=== PATIENT | female | born 1925 | race Caucasian/White ===

== ENCOUNTER → 2016-08-30 | Outpatient (CLI) | payer OTHER, BC ==
[~2016-08-30] MED LIST: ALL100 PO; AMLO-114 PO; ASPI-435 PO; B-CO1CAP17 PO; CALC1CAP36 PO; CLC100 PO; CLXOPS3 OPL; COLC0.6T54 PO; FNTTP75 TD; FRS/40 PO; FURO80TA63 PO; IPRA1AER2 INH; LIDO1CRE16 TOP; MCRK/10 PO; METO2.5T PO; ONDA4TAB46 PO; OXYC-609 PO; PRED10TA PO; PRM625 PO; TPRSR/100 PO; TRIA0.1C20 TOP; TRMCR130WC TOP
--- NOTE | 2016-08-30 11:55 | DIAGNOSTIC IMAGING REPORT ---
ABDOMEN AND PELVIS CT WITHOUT CONTRAST CT DOSE: 281.91 mGy.cm HISTORY: Bowel habit change. R10.9 Abdominal painR19.7 Diarrhea TECHNIQUE: Multiaxial CT images of the abdomen and pelvis were performed without contrast. COMPARISON STUDY: None. FINDINGS: The lung bases are clear. The unenhanced liver, spleen, gallbladder, pancreas, kidneys, and adrenal glands are within normal limits. Several gallstones are present. No bowel wall thickening or obstruction. The pelvic organs are unremarkable. No suspicious lytic or blastic osseous lesions. Mild chronic sigmoid diverticulosis. No evidence for acute diverticulitis. IMPRESSION: No significant abnormality identified within the abdomen or pelvis. Mild chronic sigmoid diverticulosis. No evidence for acute diverticulitis. Several gallstones Electronically signed by: Ronak Flores M.D. 08/30/2016 11:54 AM Dictated Date/Time: 08/30/2016 11:52 AM
[2016-08-30 13:35] LABS: BASO % 0.2 %; BASO ABS # 0.02 K/uL (0-0.2); COMPLETE YES; EOS % 2.2 %; HEMATOCRIT 37.1 % (37-47); IG% 0.2 %; LYMPH % 23.6 %; LYMPH ABS # 1.95 K/uL (1.2-3.4); MEAN CELL VOLUME 98.9 fL (80-100); MEAN CORPUSCULAR HEMOGLOBIN 32.5 pg (25-34); MEAN CORPUSCULAR HGB CONC 32.9 g/dl (32-36); MONO % 12.4 %; NEUT % 61.4 %; PLATELET COUNT 203 K/uL (130-400); RED BLOOD COUNT 3.75 M/uL (4.2-5.4); WHITE BLOOD COUNT 8.25 K/uL (4.8-10.8)
[2016-08-30 13:55] LABS: ESTIMATED AVERAGE GLUCOSE 105 mg/dl; HA1C FLAG Normal (Normal)
[2016-08-30 14:31] LABS: ALB/GLOB RATIO 0.8 (0.9-2); ALKALINE PHOSPHATASE 126 U/L (45-117); ALT/SGPT 18 U/L (12-78); AST/SGOT 24 U/L (15-37); BLOOD UREA NITROGEN 61 mg/dl (7-18); CALCIUM 9.5 mg/dl (8.5-10.1); CARBON DIOXIDE 29 mmol/L (21-32); CHLORIDE 93 mmol/L (98-107); FERRITIN 731.9 ng/ml (8.0-388.0); GLUCOSE 85 mg/dl (70-99); MAGNESIUM 2.5 mg/dl (1.8-2.4); PHOSPHORUS 3.4 mg/dl (2.5-4.9); POTASSIUM 4.9 mmol/L (3.5-5.1); RHEUMATOID FACTOR < 10.0 U/mL (0-15); SODIUM 134 mmol/L (136-145); TOTAL IRON BINDING CAPACITY 264 mcg/dl (250-450); URIC ACID 2.4 mg/dl (2.6-7.2)
[2016-08-30 15:19] LABS: LYME DISEASE AB IGG NEG (NEG); LYME DISEASE AB IGM NEG (NEG)
== END | disposition home or self-care (01) ==
LOC: C.CTS 11:22
PROVIDERS: ATTEND Family Medicine
DX: R19.7 Diarrhea, unspecified (principal); R10.9 Unspecified abdominal pain; D64.9 Anemia, unspecified; N18.4 Chronic kidney disease, stage 4 (severe); I12.9 Hypertensive chronic kidney disease with stage 1 through stage 4 chronic kidney disease, or unspecified chronic kidney disease; R73.03 Prediabetes; E03.9 Hypothyroidism, unspecified; M79.643 Pain in unspecified hand; R73.09 Other abnormal glucose

== ENCOUNTER 2017-01-11 08:19 | Inpatient (IN) | payer OTHER, BC ==
[~2017-01-11] VITALS: Ht 165.1 cm; Wt 65.0 kg
[~2017-01-11 08:19] MED LIST changes: -B-CO1CAP17 PO; -COLC0.6T54 PO; -FRS/40 PO; -LIDO1CRE16 TOP; -PRED10TA PO; -TRMCR130WC TOP
--- NOTE | 2017-01-11 08:25 | EMERGENCY ROOM VISIT NOTE ---
History Report prepared by Sandy: Carmen Echevarria Under the Supervision of: Dr. Sesar Hedrick M.D. First contact with patient: 08:20 Stated Complaint: WIRST PAIN History of Present Illness The patient is a 89 year old female who presents to the Emergency Room with complaints of worsening right wrist pain beginning this morning. The patient notes the pain was a sudden onset. She is experiencing swelling and redness to the wrist. The patient has a fistula in her right upper arm. She does have full sensation in her fingers. The patient notes swelling to her lower extremities. She denies recent IVs, cuts to arm, or rashes. She has a history of gout. Source of History: patient Onset: this morning Position: wrist (right) Timing: worsening Associated Symptoms: No rash Note: The patient is experiencing swelling and redness to right wrist, swelling to lower extremities. Review of Systems See HPI for pertinent positives & negatives. A total of 10 systems reviewed and were otherwise negative. Past Medical & Surgical Medical Problems: (1) Acute renal failure superimposed on stage 4 chronic kidney disease (2) Anemia (3) Breast cancer (4) Chest pain (5) Congestive heart failure (CHF) (6) End-stage renal disease on hemodialysis (7) Eye pain (8) Gout, arthritis (9) Hypertension (10) Kidney disease (11) Nausea Family History Cancer Diabetes mellitus Gallbladder disease Heart disease Hypertension Kidney disease Kidney stones Social History Smoking Status: Former Smoker Alcohol Use: none Drug Use: none Marital Status: single, Housing Status: lives with family Occupation Status: retired Current/Historical Medications Scheduled Allopurinol (Allopurinol), 100 MG PO QAM Amlodipine (Norvasc), 10 MG PO QAM Aspirin (Aspirin 81), 81 MG PO QAM Estrogens, Conjugated (Premarin), 0.625 MG PO DAILY Fentanyl (Fentanyl), 75 MCG TD [id number] Furosemide (Lasix), 80 MG PO DAILY Ipratropium-Albuterol (Combivent Respimat), 1 PUFFS INH UD Lidocaine-Prilocaine (Lidocaine/Prilocaine), 1 APPLN TOP DIRECTED Metoprolol Succinate (Metoprolol Succinate ER), 100 MG PO QAM Triamcinolone Acet (Aristocort 0.1%), 1 APPLN TOP NEEDED Vitamin B Cmplx/Vitc/Folic Ac (Nephrocaps), 1 CAP PO DAILY Scheduled PRN Ondansetron Hcl (Zofran), 4 MG PO for Nausea Oxycodone HCl (Oxycodone HCl), 5 MG PO Q6 PRN for Pain Allergies Coded Allergies: Clindamycin (Verified Allergy, Intermediate, NAUSEA, itching, 03/06/16) Cephalexin (Verified Allergy, Unknown, pruritis per PCP note , 03/06/16) Penicillins (Verified Allergy, Unknown, HIVES, 03/06/16) Ciprofloxacin (Verified Adverse Reaction, Unknown, NAUSEA, 03/06/16) Codeine (Verified Adverse Reaction, Unknown, NAUSEA, 03/06/16) Physical Exam Vital Signs Date Time Temp Pulse Resp B/P (MAP) Pulse Ox O2 Delivery O2 Flow Rate FiO2 01/11/17 12:04 77 22 137/72 93 Room Air 01/11/17 10:52 74 22 138/72 94 Room Air 01/11/17 09:10 85 24 159/90 97 Room Air 01/11/17 09:10 97 Room Air 01/11/17 08:26 36.9 79 24 140/79 94 Room Air Physical Exam GENERAL: Patient is very uncomfortable appearing, crying and in moderate distress. HEENT: No acute trauma, normocephalic atraumatic, mucous membranes moist, no nasal congestion, no scleral icterus. NECK: No stridor, no adenopathy, no meningismus, trachea is midline. LUNGS: No dyspnea. Crackles in bilateral lung bases No wheeze, no rhonchi. HEART: Regular rate and rhythm. No murmurs, rubs, gallops appreciated. ABDOMEN: Soft, nontender, bowel sounds positive, no masses appreciated, no peritonitis. BACK: No midline tenderness, no CVA tenderness EXTREMITIES: Moderate swelling of distal right forearm with erythema and tenderness ot palpation. Moderate pain with range of motion of right wrist. Fistula in right upper arm. 2+ edema in lower bilateral legs. NEUROLOGIC: Alert and oriented, no acute motor or sensory deficits, no focal weakness, cranial nerves grossly intact. SKIN: No rash, no jaundice, no diaphoresis. Medical Decision & Procedures ER Provider Diagnostic Interpretation: X ray results are stated below per my interpretation and the radiologist's interpretation. RIGHT FOREARM 3 VIEWS HISTORY: swelling distal right forearm Right COMPARISON: None. FINDINGS: There is no fracture or dislocation. Soft tissues are unremarkable. Surgical clips at the antecubital fossa. Soft tissue swelling within the distal right forearm/wrist. 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 IMPRESSION: No fractures. Distal soft tissue swelling. Electronically signed by: Jayden Thompson M.D. 01/11/2017 8:51 AM Dictated Date/Time: 01/11/2017 8:49 AM CHEST ONE VIEW PORTABLE CLINICAL HISTORY: Shortness of breath, CHF dyspnea COMPARISON STUDY: 03/06/2016 FINDINGS: Small focus of pleural thickening left base laterally. Mild cardiomegaly. Slight prominence pulmonary vasculature. IMPRESSION: Pleural reactive changes left base. Mild cardia megaly. Electronically signed by: Ronak Flores M.D. 01/11/2017 8:50 AM Dictated Date/Time: 01/11/2017 8:49 AM Laboratory Results 01/11/17 08:40 Red Blood Count 3.53, Mean Corpuscular Volume 99.2, Mean Corpuscular Hemoglobin 32.9, Mean Corpuscular Hemoglobin Concent 33.1, Mean Platelet Volume 9.0, Neutrophils (%) (Auto) 80.0, Lymphocytes (%) (Auto) 9.8, Monocytes (%) (Auto) 7.8, Eosinophils (%) (Auto) 2.0, Basophils (%) (Auto) 0.2, Neutrophils # (Auto) 8.37, Lymphocytes # (Auto) 1.03, Monocytes # (Auto) 0.82, Eosinophils # (Auto) 0.21, Basophils # (Auto) 0.02 01/11/17 08:40 Test 01/11/17 08:40 White Blood Count 10.47 K/uL (4.8-10.8) Red Blood Count 3.53 M/uL (4.2-5.4) Hemoglobin 11.6 g/dL (12.0-16.0) Hematocrit 35.0 % (37-47) Mean Corpuscular Volume 99.2 fL (80-100) Mean Corpuscular Hemoglobin 32.9 pg (25-34) Mean Corpuscular Hemoglobin Concent 33.1 g/dl (32-36) Platelet Count 181 K/uL (130-400) Mean Platelet Volume 9.0 fL (7.4-10.4) Neutrophils (%) (Auto) 80.0 % Lymphocytes (%) (Auto) 9.8 % Monocytes (%) (Auto) 7.8 % Eosinophils (%) (Auto) 2.0 % Basophils (%) (Auto) 0.2 % Neutrophils # (Auto) 8.37 K/uL (1.4-6.5) Lymphocytes # (Auto) 1.03 K/uL (1.2-3.4) Monocytes # (Auto) 0.82 K/uL (0.11-0.59) Eosinophils # (Auto) 0.21 K/uL (0-0.5) Basophils # (Auto) 0.02 K/uL (0-0.2) RDW Standard Deviation 49.7 fL (36.4-46.3) RDW Coefficient of Variation 13.9 % (11.5-14.5) Immature Granulocyte % (Auto) 0.2 % Immature Granulocyte # (Auto) 0.02 K/uL (0.00-0.02) Erythrocyte Sedimentation Rate 69 mm/hr (0-21) Prothrombin Time 12.0 SECONDS (9.0-12.0) Prothromb Time International Ratio 1.1 (0.9-1.1) Activated Partial Thromboplast Time 28.2 SECONDS (21.0-31.0) Partial Thromboplastin Ratio 1.1 Anion Gap 9.0 mmol/L (3-11) Est Creatinine Clear Calc Drug Dose 7.8 ml/min Estimated GFR () 9.6 Estimated GFR (Non- 8.3 BUN/Creatinine Ratio 9.3 (10-20) Uric Acid 3.3 mg/dl (2.6-7.2) Calcium Level 9.3 mg/dl (8.5-10.1) C-Reactive Protein 1.69 mg/dl (0-0.29) Pro-B-Type Natriuretic Peptide 4990 pg/ml (0-1800) Laboratory results as reviewed by me. Medications Administered Medications (Trade) Dose Ordered Sig/Otis Route Start Time Stop Time Status Last Admin Dose Admin Fentanyl Citrate (Fentanyl Inj) 50 mcg NOW STAT IV 01/11/17 08:28 01/11/17 08:30 DC 01/11/17 08:45 50 MCG Fentanyl Citrate (Fentanyl Inj) 50 mcg NOW STAT IV 01/11/17 09:08 01/11/17 09:09 DC 01/11/17 09:14 50 MCG Hydromorphone HCl (Dilaudid Inj) 0.5 mg NOW STAT IV 01/11/17 09:38 01/11/17 09:39 DC 01/11/17 09:45 0.5 MG Colchicine (Colchicine Tab) 0.6 mg NOW ONCE PO 01/11/17 10:00 01/11/17 10:01 DC 01/11/17 10:13 0.6 MG Methylprednisolone Sodium Succinate (Solu-Medrol IV) 125 mg NOW STAT IV 01/11/17 09:50 01/11/17 09:53 DC 01/11/17 10:13 125 MG Hydromorphone HCl (Dilaudid Inj) 0.5 mg NOW STAT IV 01/11/17 10:48 01/11/17 10:50 DC 01/11/17 11:13 0.5 MG Hydromorphone HCl (Dilaudid Inj) 0.5 mg NOW STAT IV 01/11/17 11:24 01/11/17 11:25 DC 01/11/17 12:56 0.5 MG Oxycodone HCl (Roxicodone Immediate Rel Tab) 5 mg Q4 PRN PO 01/11/17 12:00 01/25/17 11:59 01/11/17 14:30 5 MG ED Course 0824: The patient was evaluated in room A2. A complete history and physical exam was performed. 0828: Fentanyl Inj 50 mcg IV. 0906: The patient is still experiencing pain. 0908: Fentanyl Inj 50 mcg IV. 0936: The patient is still in significant distress and crying. 0938: Dilaudid Inj 0.5 mg IV. 0948: I spoke with Dr. Jan JIM. He says that she meets no criteria for admission and he requests she is given other medications prior to him being involved in the case. He is requesting she be given a steroid, antibiotics and Colchicine. 0950: Solu-Medrol IV 125 mg IV. 0956: The patient is still crying and in significant distress. 1000: Colchicine Tab 0.6 mg PO. 1048: Dilaudid Inj 0.5 mg IV. 1124: Dilaudid Inj 0.5 mg IV. 1131: Discussed the patient's case with Dr. Jan JIM. The patient will be evaluated for further treatment and disposition. 1135: I reevaluated the patient. Discussed results and treatment plan with the patient. She verbalized understanding and agreement with the treatment plan. The patient will be evaluated for further management. Medical Decision Differential: DVT, CHF, Arterial Occlusion, Infectious, Joint Effusion, Trauma, Lymphedema, Idiopathic, Trauma, amongst other pathologies entertained. Medication Reconciliation: I attest that I have personally reviewed the patient 's current medication list. Blood Pressure Screening: Patient was found to have a slightly elevated blood pressure due to circumstances. The patient will be monitored by hospitalist. 89 yr old female with acute pain swelling right dorsal distal forearm. Localized and very TTP. Just mild erythema. Almost looks gout like if not in normal location. Doesn't appear cellulitic and labs would go against this as well. Seems unlikely DVT. Fistula on that arm working well. Labs look OK. She required 5 rounds IV narcotics while in ED with only minimal relief and still quite uncomfortable. She was given IV steroids and PO Colchicine with no improvement over 1 to 2 hours. With intractable pain can not sent to home. Consults Time Called: [phone] Consulting Physician: Dr. Jan JIM Returned Call: [phone] Jan JIM. He says that she meets no criteria for admission and he requests she is given other medications prior to him being involved in the case. He is requesting she be given a steroid, antibiotics and Colchicine. Impression Primary Impression: Intractable pain Additional Impression: Wrist swelling Scribe Attestation The scribe's documentation has been prepared under my direction and personally reviewed by me in its entirety. I confirm that the note above accurately reflects all work, treatment, procedures, and medical decision making performed by me. Departure Information Dispostion Being Evaluated By Hospitalist Referrals Sara Stroud DO (PCP) Problem Qualifiers
[2017-01-11] MEDS ORDERED: FENTANYL CITRATE INJ 50 MCG/1 ML 2 ML VIAL IV STA ×2 (08:28→09:08)
[2017-01-11 08:48] LABS: BASO % 0.2 %; BASO ABS # 0.02 K/uL (0-0.2); COMPLETE YES; IG% 0.2 %; LYMPH % 9.8 %; LYMPH ABS # 1.03 K/uL (1.2-3.4); MEAN CELL VOLUME 99.2 fL (80-100); MEAN CORPUSCULAR HEMOGLOBIN 32.9 pg (25-34); MEAN CORPUSCULAR HGB CONC 33.1 g/dl (32-36); MONO % 7.8 %; PLATELET COUNT 181 K/uL (130-400); RED BLOOD COUNT 3.53 M/uL (4.2-5.4); WHITE BLOOD COUNT 10.47 K/uL (4.8-10.8)
--- NOTE | 2017-01-11 08:51 | DIAGNOSTIC IMAGING REPORT ---
CHEST ONE VIEW PORTABLE CLINICAL HISTORY: Shortness of breath, CHF dyspnea COMPARISON STUDY: 03/06/2016 FINDINGS: Small focus of pleural thickening left base laterally. Mild cardiomegaly. Slight prominence pulmonary vasculature. IMPRESSION: Pleural reactive changes left base. Mild cardia megaly. Electronically signed by: Ronak Flores M.D. 01/11/2017 8:50 AM Dictated Date/Time: 01/11/2017 8:49 AM
--- NOTE | 2017-01-11 08:52 | DIAGNOSTIC IMAGING REPORT ---
RIGHT FOREARM 3 VIEWS HISTORY: swelling distal right forearm Right COMPARISON: None. FINDINGS: There is no fracture or dislocation. Soft tissues are unremarkable. Surgical clips at the antecubital fossa. Soft tissue swelling within the distal right forearm/wrist. 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 IMPRESSION: No fractures. Distal soft tissue swelling. Electronically signed by: Jayden Thompson M.D. 01/11/2017 8:51 AM Dictated Date/Time: 01/11/2017 8:49 AM
[2017-01-11 09:04] LABS: CALCIUM 9.3 mg/dl (8.5-10.1)
[2017-01-11] MEDS ORDERED: FRS/40 PO (09:12)
[2017-01-11] MEDS ORDERED: LIDO1CRE16 TOP (09:12)
[2017-01-11] MEDS ORDERED: TRMCR130WC TOP (09:12)
[2017-01-11] MEDS ORDERED: B-CO1CAP17 PO (09:12)
[2017-01-11 09:16] LABS: BUN/CREATININE RATIO 9.3 (10-20); C-REACTIVE PROTEIN 1.69 mg/dl (0-0.29); CREATININE 4.4 mg/dl (0.60-1.20); URIC ACID 3.3 mg/dl (2.6-7.2)
[2017-01-11] MEDS ORDERED: HYDROmorphone INJ 0.5 MG/0.5 ML SYR IV STA ×3 (09:38→11:24)
[2017-01-11] MEDS ORDERED: METHYLPREDNISOLONE 125 MG VIAL IV STA (09:50)
[2017-01-11] MEDS ORDERED: COLCHICINE 0.6 MG TAB PO ONE (10:00)
[2017-01-11] MEDS ORDERED: ONDANSETRON INJ 2 MG/ML 2 ML VIAL IV STA (11:23)
[2017-01-11 11:44] LABS: INR 1.1 (0.9-1.1); PARTIAL THROMBOPLASTIN RATIO 1.1
[2017-01-11] MEDS ORDERED: ACETAMINOPHEN 325 MG TAB PO PRN (12:00)
[2017-01-11] MEDS ORDERED: ONDANSETRON 4 MG TAB PO PRN (12:00)
[2017-01-11] MEDS ORDERED: IPRATROPIUM BROMIDE/ALBUTEROL respimat INH INH PRN (12:00)
[2017-01-11 12:15] VITALS: O2SAT 93; Ht 165.1 cm; Wt 65.0 kg
[2017-01-11 12:55] VITALS: O2SAT 93
[2017-01-11 13:11] VITALS: BP 144/70; PULSE 70; TEMP 37.1; O2SAT 98
[2017-01-11] MEDS: OXYCODONE HCL IR 5 MG TAB (IMMEDIATE RELEASE) PO PRN ×3 (14:30→22:33)
[2017-01-11 15:38] VITALS: BP 133/66; PULSE 77; TEMP 36.8; O2SAT 92
--- NOTE | 2017-01-11 15:42 | HISTORY & PHYSICAL EXAMINATION ---
DATE OF ADMISSION: 01/11/2017 CHIEF COMPLAINT: Significant pain in right upper extremity. HISTORY OF PRESENT ILLNESS: The patient is an 89-year-old female with end-stage renal disease, on dialysis for 1 year now. Her dialysis darklight inspector is Dr. You. The patient was in her regular state of health until she developed significant right wrist pain and swelling. The patient does not recall any trauma. Her right wrist had significant decrease in range of motion, tenderness, erythema and warmth. The patient does have significant history of gout and takes medications for that. Also, she does have a history of arthritis in her back and she is on fentanyl patch 75 mcg daily and on oxycodone p.r.n. The patient received multiple rounds of Dilaudid and fentanyl in the ER plus 1 colchicine and 1 shot of Solu-Medrol with no benefit. The patient will be admitted for pain control. REVIEW OF SYSTEMS: Denies any headache, double vision, blurry vision. Denies any chest pain or palpitation. Denies any cough, wheezing, shortness of breath. Denies any diarrhea, blood in the stool. Denies any burning sensation in the urine or blood. Denies any focal weakness, tingling, numbness. Rest of the review of systems is negative. PAST MEDICAL HISTORY: 1. End-stage renal disease, on dialysis. 2. Anemia of chronic disease. 3. History of breast cancer. 4. History of congestive heart failure, unspecified type. 5. Hypertension. 6. History of gout. FAMILY HISTORY: Positive for diabetes, cancer, heart disease and hypertension. SOCIAL HISTORY: Former smoker, does not drink alcohol. Single, . HOME MEDICATIONS: 1. Allopurinol. 2. Amlodipine. 3. Aspirin. 4. Estrogen. 5. Fentanyl. 6. Lasix 80 mg daily. 7. Combivent. 8. Lidocaine cream. 9. Metoprolol succinate. 10. Triamcinolone cream. 11. Vitamin B12 supplement. 13. Vitamin B complex. 14. Also, patient takes oxycodone p.r.n. 15. Zofran. ALLERGIES: CLINDAMYCIN, KEFLEX, PENICILLIN, CIPRO AND CODEINE, yet the patient tolerated oxycodone and Dilaudid. PHYSICAL EXAMINATION: VITAL SIGNS: Temperature is 36.9, heart rate 74, respirations 22, blood pressure 138/72, pulse ox 94% on room air. GENERAL: Average built, not in acute distress. HEENT: No jaundice. No pallor with mucous membranes. NECK: Supple. HEART: S1, S2 normal. No gallop, rub or murmur. LUNGS: Clear to auscultation bilaterally. Normal chest wall expansion. ABDOMEN: Soft, nontender, nondistended. NEUROLOGIC: Awake, alert, oriented to time, place, and person. Moves all extremities. Sensation intact. Cranial nerves II through XII appear to be intact. SKIN: No rash. EXTREMITIES: Right wrist appears to be swollen, tender and erythematous with decreased range of motion. IMAGING: X-ray of right wrist showed no fracture, but soft tissue swelling. Chest x-ray showed small focus of pleural thickening left base laterally, mild cardiomegaly, slight prominent pulmonary vasculature. LABORATORY DATA: White blood cell count 10.4, hemoglobin 11.6, platelets 181. BUN is 41, creatinine 4.4. Sodium 137, potassium is 4. Uric acid is 3.3. C-reactive protein 1.69 and BNP is 4990. elevated sedimentation rate is 69. ASSESSMENT: 1. Severe pain, swelling and decreased range of motion in right wrist, most likely acute gout. 2. End-stage renal disease, on dialysis. 3. Chest x-ray incidental finding of pleural reactive changes in left base/pleural thickening. 4. Anemia of chronic disease most likely. 5. History of congestive heart failure, unspecified. 6. Hypertension. 7. Severe chronic gout. PLAN: 1. The patient already received 1 dose of colchicine, will hold off that. 2. We will start her on Solu-Medrol 60 q.6 hours. 3. Pain management, continue her fentanyl patch and add oxycodone p.r.n. 4. Follow up labs in a.m. 5. Consult darklight inspector for dialysis while inpatient. 6. Hold allopurinol for now due to the acute gout. 7. Continue home medications as appropriate. 8. Heparin b.i.d. for DVT prophylaxis. 9. While on Solu-Medrol we will repeat her labs tomorrow to keep an eye on her blood sugar. 10. Pepcid once a day for GI prophylaxis. 11. If no improvement, consider consulting orthopedic for intraarticular injection. MTDD
[2017-01-11] MEDS: CHECK FENTANYL PATCH PLACEMENT SCH (15:47)
[2017-01-11] MEDS: METHYLPREDNISOLONE IV 60 MG in SYRINGE 0 ML IV SCH ×2 (15:47→22:27)
--- NOTE | 2017-01-11 18:26 | Nephrology Consultation ---
Nephrology Consultation Date & Providers Date of Consultation: Jan 11, 2017. Primary Care Provider: Sara Stroud DO Referring Provider: Reason for Consultation ESRD History of Present Illness Elsie is an 89-year-old female with end-stage renal disease. She receives dialysis on a Sunday schedule at [facility] under the care of Dr. Echeverria. The patient's last treatment was Sunday. she has been tolerating dialysis reasonably well but unfortunately suffers from cramping with her dialysis treatments. For this reason has been difficult to ultrafiltrate the patient. I discussed her dialysis treatments with nursing staff at the dialysis unit earlier today. Patient dialyzes for 3 hours and 15 minutes with a blood flow 400 via an AV fistula. Her dry weight is approximately 66 kilograms. Her average net ultrafiltration is approximately 1 kilogram. Medical history is notable for hypertension, diffuse arthritis with spinal stenosis as well as a history of gout. Patient has recently developed some evidence of dementia. She has been on hemodialysis since February of 2016. [facility] with refractory pain in her wrist. The joint is painful and swollen. Mildly erythematous. Symptoms have been improving with management. Past Medical/Surgical History Medical: End-stage renal disease on hemodialysis, dementia, hypertension, spinal stenosis , osteoarthritis and degenerative joint disease, gout Surgical: Total knee arthroplasty, mastectomy Allergies Coded Allergies: Clindamycin (Verified Allergy, Intermediate, NAUSEA, itching, 03/06/16) Cephalexin (Verified Allergy, Unknown, pruritis per PCP note , 03/06/16) Penicillins (Verified Allergy, Unknown, HIVES, 03/06/16) Ciprofloxacin (Verified Adverse Reaction, Unknown, NAUSEA, 03/06/16) Codeine (Verified Adverse Reaction, Unknown, NAUSEA, 03/06/16) Inpatient Medications Current Inpatient Medications Medications (Trade) Dose Ordered Sig/Otis Route Start Time Stop Time Status Last Admin Dose Admin Heparin Sodium (Porcine) (Heparin Sq 5000 Unit/0.5ml) 5,000 unit Q12 SQ 01/11/17 21:00 02/10/17 20:59 Acetaminophen (Tylenol Tab) 650 mg Q4H PRN PO 01/11/17 12:00 02/10/17 11:59 Methylprednisolone Sodium Succinate 60 mg/Syringe 0.96 ml @ 1.5 mls/min Q6H IV 01/11/17 16:00 02/10/17 15:59 01/11/17 15:47 1.5 MLS/MIN Amlodipine Besylate (Norvasc Tab) 10 mg QAM PO 01/12/17 09:00 02/11/17 08:59 Aspirin (Ecotrin Tab) 81 mg QAM PO 01/12/17 09:00 02/11/17 08:59 Estrogens Conjugated (Premarin Tab) 0.625 mg DAILY PO 01/12/17 09:00 02/11/17 08:59 Furosemide (Lasix Tab) 80 mg DAILY PO 01/12/17 09:00 02/11/17 08:59 Albuterol/ Ipratropium (Combivent Respimat Inh) 1 puffs Q6 PRN INH 01/11/17 12:00 02/10/17 11:59 Lidocaine/ Prilocaine (Emla 2.5% Crm) 1 ea DAILY EXT 01/12/17 09:00 02/11/17 08:59 Ondansetron HCl (Zofran Tab) 4 mg Q12 PRN PO 01/11/17 12:00 02/10/17 11:59 Triamcinolone Acetonide (Kenalog 0.1% Cream) 1 appln DAILY EXT 01/12/17 09:00 02/11/17 08:59 Fentanyl (Duragesic Patch) 75 mcg Q3D@0900 TD 01/14/17 09:00 01/28/17 08:59 Metoprolol Succinate (Toprol Xl Tab) 100 mg QAM PO 01/12/17 09:00 02/11/17 08:59 Oxycodone HCl (Roxicodone Immediate Rel Tab) 5 mg Q4 PRN PO 01/11/17 12:00 01/25/17 11:59 01/11/17 14:30 5 MG Famotidine (Pepcid Tab) 20 mg QAM PO 01/12/17 09:00 02/11/17 08:59 Miscellaneous (Fentanyl Patch Remove & Waste) 1 ea Q3D@0859 N/A 01/14/17 08:59 02/13/17 08:58 Miscellaneous Information (Check Fentanyl Patch Placement) 1 ea QS N/A 01/11/17 16:00 02/10/17 15:59 01/11/17 15:47 1 EA Family History Cancer Diabetes mellitus Gallbladder disease Heart disease Hypertension Kidney disease Kidney stones Social History Smoking Status: Former Smoker Drug Use: none Marital Status: single, Housing Status: lives with family Occupation: retired Review of Systems A complete review of systems was performed. Pertinent positives are noted above. All other systems are negative. Physical Exam Date Time Temp Pulse Resp B/P (MAP) Pulse Ox O2 Delivery O2 Flow Rate FiO2 01/11/17 16:00 Room Air 01/11/17 15:38 36.8 77 20 133/66 (88) 92 Room Air 01/11/17 13:11 37.1 70 18 144/70 (94) 98 Room Air 01/11/17 12:55 75 22 138/72 93 01/11/17 12:15 93 Room Air 01/11/17 12:04 77 22 137/72 93 Room Air 01/11/17 10:52 74 22 138/72 94 Room Air 01/11/17 09:10 85 24 159/90 97 Room Air 01/11/17 09:10 97 Room Air 01/11/17 08:26 36.9 79 24 140/79 94 Room Air General Appearance: WD/WN, no apparent distress, + thin Head: normocephalic, atraumatic Eyes: normal inspection, sclerae normal ENT: normal ENT inspection, pharynx normal Neck: supple, no JVD Respiratory/Chest: lungs clear, no respiratory distress, no accessory muscle use Cardiovascular: regular rate, rhythm, no gallop Abdomen/GI: non tender, soft Back: normal inspection, no muscle spasm Extremities/Musculoskelatal: normal inspection, no pedal edema Neurologic/Psych: alert, normal mood/affect Skin: normal color Laboratory Results Last 24 Hours Test 01/11/17 08:40 White Blood Count 10.47 K/uL Red Blood Count 3.53 M/uL Hemoglobin 11.6 g/dL Hematocrit 35.0 % Mean Corpuscular Volume 99.2 fL Mean Corpuscular Hemoglobin 32.9 pg Mean Corpuscular Hemoglobin Concent 33.1 g/dl Platelet Count 181 K/uL Mean Platelet Volume 9.0 fL Neutrophils (%) (Auto) 80.0 % Lymphocytes (%) (Auto) 9.8 % Monocytes (%) (Auto) 7.8 % Eosinophils (%) (Auto) 2.0 % Basophils (%) (Auto) 0.2 % Neutrophils # (Auto) 8.37 K/uL Lymphocytes # (Auto) 1.03 K/uL Monocytes # (Auto) 0.82 K/uL Eosinophils # (Auto) 0.21 K/uL Basophils # (Auto) 0.02 K/uL RDW Standard Deviation 49.7 fL RDW Coefficient of Variation 13.9 % Immature Granulocyte % (Auto) 0.2 % Immature Granulocyte # (Auto) 0.02 K/uL Erythrocyte Sedimentation Rate 69 mm/hr Prothrombin Time 12.0 SECONDS Prothromb Time International Ratio 1.1 Activated Partial Thromboplast Time 28.2 SECONDS Partial Thromboplastin Ratio 1.1 Sodium Level 137 mmol/L Potassium Level 4.0 mmol/L Chloride Level 98 mmol/L Carbon Dioxide Level 30 mmol/L Anion Gap 9.0 mmol/L Blood Urea Nitrogen 41 mg/dl Creatinine 4.40 mg/dl Est Creatinine Clear Calc Drug Dose 7.8 ml/min Estimated GFR () 9.6 Estimated GFR (Non- 8.3 BUN/Creatinine Ratio 9.3 Random Glucose 103 mg/dl Uric Acid 3.3 mg/dl Calcium Level 9.3 mg/dl C-Reactive Protein 1.69 mg/dl Pro-B-Type Natriuretic Peptide 4990 pg/ml Impression (1) End-stage renal disease on hemodialysis (2) Anemia (3) Hypertension (4) Gout, arthritis (5) Wrist swelling Elsie is an 89-year-old female with end-stage renal disease on hemodialysis. Her blood pressure and volume status are currently appropriate. Metabolic profile is also acceptable. She missed her dialysis treatment today. She will receive dialysis as an inpatient tomorrow. Recommendations -- HD tomorrow. Orders entered into EMR -- UF as tolerated -- Medications appropriately dosed for renal function -- Anemia is stable. No additional need for ALISON. Maintained on Micera as outpatient -- Furosemide, amlodipine and metoprolol continued per home regimen
[2017-01-11 19:53] VITALS: BP 131/68; PULSE 75; TEMP 36.7; O2SAT 95
[2017-01-11] MEDS: HEPARIN SOD 5000 UNIT/0.5 ML CARP SQ SCH (20:56)
[2017-01-11 23:22] VITALS: BP 127/61; PULSE 76; TEMP 36.6; O2SAT 92
[2017-01-12] VITALS (20 sets, daily range): BP systolic 126–154; BP diastolic 61–74; PULSE 65–84; TEMP 36.4–36.6; O2SAT 94–97
[2017-01-12] MEDS: CHECK FENTANYL PATCH PLACEMENT SCH ×2 (00:24→08:13)
[2017-01-12] MEDS: METHYLPREDNISOLONE IV 60 MG in SYRINGE 0 ML IV SCH ×2 (04:21→13:08)
[2017-01-12 06:17] LABS: COMPLETE YES; HEMATOCRIT 30.1 % (37-47); IG% 0.2 %; LYMPH % 6.7 %; LYMPH ABS # 0.59 K/uL (1.2-3.4); MEAN CELL VOLUME 95.9 fL (80-100); MEAN CORPUSCULAR HEMOGLOBIN 32.5 pg (25-34); MEAN CORPUSCULAR HGB CONC 33.9 g/dl (32-36); MEAN PLATELET VOLUME 9.4 fL (7.4-10.4); MONO % 2.5 %; NEUT % 90.6 %; PLATELET COUNT 163 K/uL (130-400); RED BLOOD COUNT 3.14 M/uL (4.2-5.4)
[2017-01-12 06:58] LABS: ALB/GLOB RATIO 0.8 (0.9-2); BUN/CREATININE RATIO 11.4 (10-20); CALCIUM 8.9 mg/dl (8.5-10.1); CREATININE 4.9 mg/dl (0.60-1.20); MAGNESIUM 2.2 mg/dl (1.8-2.4); PHOSPHORUS 3.7 mg/dl (2.5-4.9); POTASSIUM 3.8 mmol/L (3.5-5.1)
[2017-01-12] MEDS: OXYCODONE HCL IR 5 MG TAB (IMMEDIATE RELEASE) PO PRN ×2 (08:12→13:17)
[2017-01-12] MEDS: HEPARIN SOD 5000 UNIT/0.5 ML CARP SQ SCH (08:15)
--- NOTE | 2017-01-12 08:15 | Hospitalist Progress Note ---
Hospitalist Progress Note Date of Service Jan 12, 2017. (Latha Allen PA-C) Subjective Pt evaluation today including: conversation w/ patient, physical exam, chart review, lab review, review of studies Pain: None PO Intake: Good Voiding: no voiding problems The patient was seen and examined during dialysis. Pt reports doing well today, her pain in the right wrist is much better, the redness is resolved and swelling is also much improved. She denies any fevers, chills or sweats. She lives at home with her niece, and reports this works very well. Her meds are taken care of by the niece. She has no other acute complaints. Constitutional: No fever, No chills, No sweats, No fatigue Eyes: No redness, No diplopia ENT: No sore throat, No tinnitus, No dental problems Respiratory: No cough, No dyspnea on exertion Cardiovascular: No chest pain, No palpitations Abdomen: No pain, No nausea, No vomiting, No diarrhea, No constipation Musculoskeletal: + joint pain, No swelling Neurologic: No weakness, No numbness/tingling Endo: No fatigue Skin: No rash, No itch (Latha Allen PA-C) Objective Vital Signs Date Time Temp Pulse Resp B/P (MAP) Pulse Ox O2 Delivery O2 Flow Rate FiO2 01/12/17 04:00 Room Air 01/12/17 03:39 36.6 78 19 126/61 (82) 95 Room Air 01/11/17 23:59 Room Air 01/11/17 23:22 36.6 76 20 127/61 (83) 92 Room Air 01/11/17 20:00 Room Air 01/11/17 19:53 36.7 75 18 131/68 (89) 95 Room Air 01/11/17 16:00 Room Air 01/11/17 15:38 36.8 77 20 133/66 (88) 92 Room Air 01/11/17 13:11 37.1 70 18 144/70 (94) 98 Room Air 01/11/17 12:55 75 22 138/72 93 01/11/17 12:15 93 Room Air 01/11/17 12:04 77 22 137/72 93 Room Air 01/11/17 10:52 74 22 138/72 94 Room Air 01/11/17 09:10 85 24 159/90 97 Room Air 01/11/17 09:10 97 Room Air 01/11/17 08:26 36.9 79 24 140/79 94 Room Air (Latha Allen PA-C) Physical Exam General Appearance: WD/WN, no apparent distress Eyes: PERRL, EOMI ENT: hearing grossly normal, pharynx normal Neck: supple, no JVD Respiratory/Chest: lungs clear, no respiratory distress, no accessory muscle use Cardiovascular: regular rate, rhythm, no JVD, no murmur Abdomen: normal bowel sounds, non tender, soft Extremities: non-tender, no calf tenderness, + pertinent finding (RUE AVF with palpable thrill. + Right wrist without erythema, minimal pain with active ROM, no point tenderness. ) Neurologic/Psychiatric: no motor/sensory deficits, alert, oriented x 3 Skin: normal color, warm/dry (Latha Allen PA-C) Laboratory Results Last 24 Hours Test 01/11/17 08:40 01/12/17 06:06 White Blood Count 10.47 K/uL 8.80 K/uL Red Blood Count 3.53 M/uL 3.14 M/uL Hemoglobin 11.6 g/dL 10.2 g/dL Hematocrit 35.0 % 30.1 % Mean Corpuscular Volume 99.2 fL 95.9 fL Mean Corpuscular Hemoglobin 32.9 pg 32.5 pg Mean Corpuscular Hemoglobin Concent 33.1 g/dl 33.9 g/dl Platelet Count 181 K/uL 163 K/uL Mean Platelet Volume 9.0 fL 9.4 fL Neutrophils (%) (Auto) 80.0 % 90.6 % Lymphocytes (%) (Auto) 9.8 % 6.7 % Monocytes (%) (Auto) 7.8 % 2.5 % Eosinophils (%) (Auto) 2.0 % 0.0 % Basophils (%) (Auto) 0.2 % 0.0 % Neutrophils # (Auto) 8.37 K/uL 7.97 K/uL Lymphocytes # (Auto) 1.03 K/uL 0.59 K/uL Monocytes # (Auto) 0.82 K/uL 0.22 K/uL Eosinophils # (Auto) 0.21 K/uL 0.00 K/uL Basophils # (Auto) 0.02 K/uL 0.00 K/uL RDW Standard Deviation 49.7 fL 47.6 fL RDW Coefficient of Variation 13.9 % 13.6 % Immature Granulocyte % (Auto) 0.2 % 0.2 % Immature Granulocyte # (Auto) 0.02 K/uL 0.02 K/uL Erythrocyte Sedimentation Rate 69 mm/hr Prothrombin Time 12.0 SECONDS Prothromb Time International Ratio 1.1 Activated Partial Thromboplast Time 28.2 SECONDS Partial Thromboplastin Ratio 1.1 Sodium Level 137 mmol/L 135 mmol/L Potassium Level 4.0 mmol/L 3.8 mmol/L Chloride Level 98 mmol/L 97 mmol/L Carbon Dioxide Level 30 mmol/L 27 mmol/L Anion Gap 9.0 mmol/L 11.0 mmol/L Blood Urea Nitrogen 41 mg/dl 55 mg/dl Creatinine 4.40 mg/dl 4.90 mg/dl Est Creatinine Clear Calc Drug Dose 7.8 ml/min 7.0 ml/min Estimated GFR () 9.6 8.5 Estimated GFR (Non- 8.3 7.3 BUN/Creatinine Ratio 9.3 11.4 Random Glucose 103 mg/dl 159 mg/dl Uric Acid 3.3 mg/dl Calcium Level 9.3 mg/dl 8.9 mg/dl C-Reactive Protein 1.69 mg/dl Pro-B-Type Natriuretic Peptide 4990 pg/ml Lactic Acid Level 1.0 mmol/L Phosphorus Level 3.7 mg/dl Magnesium Level 2.2 mg/dl Total Bilirubin 0.4 mg/dl Aspartate Amino Transf (AST/SGOT) 22 U/L Alanine Aminotransferase (ALT/SGPT) 17 U/L Alkaline Phosphatase 89 U/L Total Protein 7.0 gm/dl Albumin 3.0 gm/dl Globulin 4.0 gm/dl Albumin/Globulin Ratio 0.8 (Latha Allen, PAAlfredC) Assessment and Plan Significant R wrist pain - likely gout, acute flare on chronic gout hx. - developed significant right wrist pain and swelling. The patient does not recall any trauma. Her right wrist had significant decrease in range of motion , tenderness, erythema and warmth. - solumedrol 60 mg IV q6H -- will de-escalate regimen with prednisone 30 mg x 3 days and taper off by 10 until complete. - received 1 dose of colchicine in the ED. hold with ESRD on HD. Allopurinol was held at time of admission, but pt has been on this chronically so can safely be resumed. - Other pain control with oxycodone, dilaudid - pt has not required with steriods on board End-stage renal disease, on dialysis. - Follows with Dr. Echeverria, nephrology consulted, appreciate - receives dialysis on a Sunday schedule at [facility] under the care of Dr. Echeverria. The patient's last treatment was Sunday. Chest x-ray incidental finding of pleural reactive changes in left base/pleural thickening. Anemia of chronic disease most likely History of congestive heart failure, unspecified. HTN - Cont Lasix po 80 mg QAM - Metoprolol succ 100 mg QAM DVT ppx: Disposition: From home, discharge home today (Latha Allen, PAAbena) Attending Attestation: Pt seen/examined, chart reviewed, care plan d/w NAYELI Allen. I agree w/ her progress note as documented. Pt's right wrist pain is much better today. Had hemodialysis today as well. VSS no fever gen - nad neck - no JVD heart - RRR lungs - CTA b/l abd - soft ext - right wrist with minimal synovitis; passive ROM much improved; no other joints w/ synovitis; right upper arm AV fistula in place, +thrill A/P: monoarticular arthritis - right wrist - likely gout - improved. doubt infectious etiology. send home with prednisone taper. colchicine prn for future flares. continue allopurinol. ok to d/c home. Juliana LONGO MD (Rodo Longo MD)
[2017-01-12] MEDS ORDERED: LIDOCAINE/PRILOCAINE 2.5% EA CRM EXT SCH (09:00)
[2017-01-12] MEDS ORDERED: METOPROLOL SUCC 50MG EXT REL TAB PO SCH (09:00)
[2017-01-12] MEDS ORDERED: ESTROGENS, CONJUGATED 0.625 MG TAB PO SCH (09:00)
[2017-01-12] MEDS ORDERED: AMLODIPINE BESYLATE 5 MG TAB PO SCH (09:00)
[2017-01-12] MEDS ORDERED: FUROSEMIDE 40 MG TAB PO SCH (09:00)
[2017-01-12] MEDS ORDERED: TRIAMCINOLONE ACET 0.1% CR 15 GM TUBE EXT SCH (09:00)
[2017-01-12] MEDS ORDERED: ASPIRIN 81 MG ECTAB PO SCH (09:00)
[2017-01-12] MEDS ORDERED: HEPARIN SOD (PORCINE) 1000 UNIT/ML 10 ML VIAL IV SCH (09:00)
[2017-01-12] MEDS ORDERED: FAMOTIDINE 20 MG TAB PO SCH (09:00)
[2017-01-12] MEDS: HEPARIN SOD (PORCINE) 1000 UNIT/ML 10 ML VIAL IV SCH ×3 (09:00→11:00)
[2017-01-12] MEDS ORDERED: PRED10TA PO ×2 (14:01→14:54)
--- NOTE | 2017-01-12 14:07 | Discharge Instructions ---
Discharge Instructions Date of Service Jan 12, 2017. Admission Reason for Admission: Gout, Arthritis Discharge Discharge Diagnosis / Problem: Acute Gout flare of the R wrist Discharge Goals Goal(s): Decrease discomfort, Improve function, Increase independence, Improve disease control Activity Recommendations Activity Limitations: resume your previous activity Lifting Limitations: no more than 10 pounds, gradually increase as tolerated Exercise/Sports Limitations: gradually increase as tolerated Shower/Bathe: no limitations (with assistance) Driving or Machine Use: no limitations . Instructions / Follow-Up Instructions / Follow-Up You were admitted to [facility] with right wrist pain and diagnosed with acute gout flare . During your stay here you were treated with intravenous steriods and other pain control. Imaging studies which were completed include Xray of the right wrist, and were normal. You underwent normal scheduled hemodialysis during your admission. You may resume your normally scheduled , , [facility] hemodialysis as an oupatient. Medications: Continue taking prednisone taper as directed. Take 30 mg (3 tabs) x 3 days, then 20 mg (2 tabs) x 2 days, then 10 mg (1 tab) x 2 days, You should finish this on 01/19/17. You have been given a prescription for colchicine 0.6 mg daily as needed for gouty arthritis. If you take this medication for more than 2-3 days and do not notice an improvement call your PCP. Follow up with your Primary Care Provider within 1 week. Current Hospital Diet Patient's current hospital diet: Renal Diet Discharge Diet Recommended Diet: Renal Diet Pending Studies Studies pending at discharge: no Medical Emergencies . Who to Call and When: Medical Emergencies: If at any time you feel your situation is an emergency, please call 911 immediately. . Non-Emergent Contact Non-Emergency issues call your: Primary Care Provider Call Non-Emergent contact if: you have a fever, temperature is above 100.5, your pain is not controlled, your pain is worsening, you have any medication questions . Past History Medical & Surgical History: (1) Gout, arthritis (2) Congestive heart failure (CHF) (3) Hypertension (4) End-stage renal disease on hemodialysis (5) Anemia . "Provider Documentation" section prepared by Regina Allen. Attending Attestation: Pt seen/examined and discharge care plan d/w NAYELI Allen. I agree w/ her discharge instructions as outlined. Rodo Gilbert MD . VTE Core Measure Inpt VTE Proph given/why not?: Unfractionated heparin HARRISON, T.E.Terrence. Kei, SCD 's
--- NOTE | 2017-01-12 14:12 | Discharge Summary ---
Discharge Summary Date of Service Jan 12, 2017. (Latha Allen PA-C) Discharge Summary Admission Date: Jan 11, 2017 at 12:09 Discharge Date: Jan 12, 2017 Discharge Disposition: Home Principal Diagnosis: Acute gout flare of Right wrist Problems/Secondary Diagnoses: CHF, HTN, anemia of chronic disease, ESRD on HD Procedures: RIGHT FOREARM 3 VIEWS HISTORY: swelling distal right forearm Right COMPARISON: None. FINDINGS: There is no fracture or dislocation. Soft tissues are unremarkable. Surgical clips at the antecubital fossa. Soft tissue swelling within the distal right forearm/wrist. 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 IMPRESSION: No fractures. Distal soft tissue swelling. Electronically signed by: Jayden Thompson M.D. 01/11/2017 8:51 AM Dictated Date/Time: 01/11/2017 8:49 AM CHEST ONE VIEW PORTABLE CLINICAL HISTORY: Shortness of breath, CHF dyspnea COMPARISON STUDY: 03/06/2016 FINDINGS: Small focus of pleural thickening left base laterally. Mild cardiomegaly. Slight prominence pulmonary vasculature. IMPRESSION: Pleural reactive changes left base. Mild cardia megaly. Electronically signed by: Ronak Flores M.D. 01/11/2017 8:50 AM Dictated Date/Time: 01/11/2017 8:49 AM The status of this report is Signed. Consultations: Nephrology (Latha Allen PA-C) Medication Reconciliation New Medications: Colchicine (Colchicine) 0.6 Mg Tab 0.6 MG PO DAILY PRN for Pain for 25 Days, #25 TAB Use for gouty athritis pain Prednisone Tab (Prednisone) 10 Mg Tab 10 MG PO UD for 12 Days, #20 TAB Take 30 mg x 3 days, then 20 mg x 2 days, then 10 mg x 2 days, then STOP. Continued Medications: Allopurinol (Allopurinol) 100 Mg Tab 100 MG PO QAM Amlodipine (Norvasc) 10 Mg Tab 10 MG PO QAM, TAB Aspirin (Aspirin 81) 81 Mg Tab 81 MG PO QAM Estrogens, Conjugated (Premarin) 0.625 Mg Tab 0.625 MG PO DAILY, TAB Fentanyl (Fentanyl) 75 Mcg Tdsy 75 MCG TD [id number] Furosemide (Lasix) 40 Mg Tab 80 MG PO DAILY Ipratropium-Albuterol (Combivent Respimat) 1 Aer Aer 1 PUFFS INH UD, INH Lidocaine-Prilocaine (Lidocaine/Prilocaine) 1 Cre Cre 1 APPLN TOP DIRECTED USE 1 HOUR BEFORE DIALYSIS Metoprolol Succinate (Metoprolol Succinate ER) 100 Mg Tabcr 100 MG PO QAM Ondansetron Hcl (Zofran) 4 Mg Tab 4 MG PO PRN for Nausea, TAB Oxycodone HCl (Oxycodone HCl) 5 Mg Tab 5 MG PO Q6 PRN for Pain Triamcinolone Acet (Aristocort 0.1%) 90 Appln/30 Gm Cr 1 APPLN TOP NEEDED Vitamin B Cmplx/Vitc/Folic Ac (Nephrocaps) Cap 1 CAP PO DAILY Discharge Exam Subjective Pt evaluation today including: conversation w/ patient, physical exam, chart review, lab review, review of studies Pain: None PO Intake: Good Voiding: no voiding problems The patient was seen and examined during dialysis. Pt reports doing well today, her pain in the right wrist is much better, the redness is resolved and swelling is also much improved. She denies any fevers, chills or sweats. She lives at home with her niece, and reports this works very well. Her meds are taken care of by the niece. She has no other acute complaints. Constitutional: No fever, No chills, No sweats, No fatigue Eyes: No redness, No diplopia ENT: No sore throat, No tinnitus, No dental problems Respiratory: No cough, No dyspnea on exertion Cardiovascular: No chest pain, No palpitations Abdomen: No pain, No nausea, No vomiting, No diarrhea, No constipation Musculoskeletal: + joint pain, No swelling Neurologic: No weakness, No numbness/tingling Endo: No fatigue Skin: No rash, No itch Objective Vital Signs Date Time Temp Pulse Resp B/P (MAP) Pulse Ox O2 Delivery O2 Flow Rate FiO2 01/12/17 04:00 Room Air 01/12/17 03:39 36.6 78 19 126/61 (82) 95 Room Air 01/11/17 23:59 Room Air 01/11/17 23:22 36.6 76 20 127/61 (83) 92 Room Air 01/11/17 20:00 Room Air 01/11/17 19:53 36.7 75 18 131/68 (89) 95 Room Air 01/11/17 16:00 Room Air 01/11/17 15:38 36.8 77 20 133/66 (88) 92 Room Air 01/11/17 13:11 37.1 70 18 144/70 (94) 98 Room Air 01/11/17 12:55 75 22 138/72 93 01/11/17 12:15 93 Room Air 01/11/17 12:04 77 22 137/72 93 Room Air 01/11/17 10:52 74 22 138/72 94 Room Air 01/11/17 09:10 85 24 159/90 97 Room Air 01/11/17 09:10 97 Room Air 01/11/17 08:26 36.9 79 24 140/79 94 Room Air Physical Exam General Appearance: WD/WN, no apparent distress Eyes: PERRL, EOMI ENT: hearing grossly normal, pharynx normal Neck: supple, no JVD Respiratory/Chest: lungs clear, no respiratory distress, no accessory muscle use Cardiovascular: regular rate, rhythm, no JVD, no murmur Abdomen: normal bowel sounds, non tender, soft Extremities: non-tender, no calf tenderness, + pertinent finding (RUE AVF with palpable thrill. + Right wrist without erythema, minimal pain with active ROM, no point tenderness. ) Neurologic/Psychiatric: no motor/sensory deficits, alert, oriented x 3 Skin: normal color, warm/dry (Latha Allen, IGNACIA) Hospital Course H&P HISTORY OF PRESENT ILLNESS: The patient is an 89-year-old female with end-stage renal disease, on dialysis for 1 year now. Her dialysis yard jacker is Dr. You. The patient was in her regular state of health until she developed significant right wrist pain and swelling. The patient does not recall any trauma. Her right wrist had significant decrease in range of motion, tenderness, erythema and warmth. The patient does have significant history of gout and takes medications for that. Also, she does have a history of arthritis in her back and she is on fentanyl patch 75 mcg daily and on oxycodone p.r.n. The patient received multiple rounds of Dilaudid and fentanyl in the ER plus 1 colchicine and 1 shot of Solu-Medrol with no benefit. The patient will be admitted for pain control. PHYSICAL EXAMINATION: VITAL SIGNS: Temperature is 36.9, heart rate 74, respirations 22, blood pressure 138/72, pulse ox 94% on room air. GENERAL: Average built, not in acute distress. HEENT: No jaundice. No pallor with mucous membranes. NECK: Supple. HEART: S1, S2 normal. No gallop, rub or murmur. LUNGS: Clear to auscultation bilaterally. Normal chest wall expansion. ABDOMEN: Soft, nontender, nondistended. NEUROLOGIC: Awake, alert, oriented to time, place, and person. Moves all extremities. Sensation intact. Cranial nerves II through XII appear to be intact. SKIN: No rash. EXTREMITIES: Right wrist appears to be swollen, tender and erythematous with decreased range of motion. Hospital Course: Significant R wrist pain -acute gout flare on chronic gout hx. - developed significant right wrist pain and swelling. The patient does not recall any trauma. Her right wrist had significant decrease in range of motion , tenderness, erythema and warmth. - solumedrol 60 mg IV q6H -- will de-escalate regimen with prednisone 30 mg x 3 days and taper off by 10 until complete. - received 1 dose of colchicine in the ED. hold with ESRD on HD. Allopurinol was held at time of admission, but pt has been on this chronically so can safely be resumed. - Other pain control with oxycodone, dilaudid - pt has not required with steriods on board End-stage renal disease, on dialysis. - Follows with Dr. Echeverria, nephrology consulted, appreciate - receives dialysis on a Sunday schedule at [facility] under the care of Dr. Echeverria. The patient's last treatment was Sunday. Chest x-ray incidental finding of pleural reactive changes in left base/pleural thickening. Anemia of chronic disease most likely History of congestive heart failure, unspecified. HTN - Cont Lasix po 80 mg QAM - Metoprolol succ 100 mg QAM DVT ppx: Disposition: From home, discharge home today Total Time Spent: Greater than 30 minutes This includes examination of the patient, discharge planning, medication reconciliation, and communication with other providers. (Latha Allen PA-C) Attending Discharge Note & Attestation: Pt seen/examined, chart reviewed, and care plan d/w NAYELI Allen. I agree w/ the hanson components of her discharge summary. 89yo female with ESRD on HD who presented with acute monoarticular arthritis of the right wrist. This was felt to be due to gout rather than an infectious etiology. She was started on IV steroids and she improved rapidly. She will d/c to home on a short course of oral prednisone. In addition to the above she received hemodialysis. All other medical problems remained stable while hospitalized. Discharge exam - gen - nad neck - no JVD heart - RRR lungs - CTA b/l abd - soft ext - right wrist with minimal amount of synovitis; passive ROM improved/nearly normal vascular - AV fistula, right upper arm, with +thrill Rodo Gilbert MD (Rodo Gilbert MD) Discharge Instructions Please refer to the electronic Patient Visit Report (Discharge Instructions) for additional information. (Latha Allen, MANUELC) Follow-Up Follow up with your Primary Care Provider within 1 week. Follow up with nephrology for dialysis as already scheduled. (Latha Allen, NAYELI-C) Additional Copies To Margaux Echeverria MD; Sara Stroud DO
[2017-01-12] MEDS ORDERED: COLC0.6T54 PO (14:54)
--- NOTE | 2017-01-12 18:50 | Dialysis Progress Note ---
Hemodialysis Note Date of Service Jan 12, 2017. Chief Complaint ESRD Subjective Elsie was seen and evaluated this morning during hemodialysis. She was tolerating hemodialysis well. Qb and blood pressure appropriate. UF goal ~2 kg as tolerated. EDW 66 kg (patient was 67 kg this morning). I discussed the discharge plan with Dr. Echeverria today. Patient will follow up with HD at [facility] tomorrow as outpatient. Review of Systems A complete review of systems was performed. Pertinent positives are noted above. All other systems are negative. Vital Signs Last 8 Hrs Date Time Temp Pulse Resp B/P (MAP) Pulse Ox O2 Delivery O2 Flow Rate FiO2 01/12/17 15:00 36.6 80 17 94 Room Air 01/12/17 13:03 36.6 80 17 144/74 (97) 94 Room Air 01/12/17 13:00 Room Air 01/12/17 12:40 36.4 72 140/65 (90) 01/12/17 12:00 67 128/73 01/12/17 11:45 66 129/68 01/12/17 11:30 69 138/70 01/12/17 11:15 69 134/69 01/12/17 11:00 70 141/67 I & O 24-Hour Column 01/13/17 08:00 Intake Total 208 ml Output Total 2300 ml Balance -2092 ml Last Recorded Weight Weight (Kilograms): 65.000 Physical Exam General Appearance: WD/WN, no apparent distress Head: normocephalic, atraumatic Eyes: normal inspection, sclerae normal ENT: normal ENT inspection, pharynx normal Neck: supple, no JVD Respiratory/Chest: lungs clear, no respiratory distress, no accessory muscle use Cardiovascular: regular rate, rhythm, no murmur Abdomen/GI: non tender, soft Extremities/Musculoskelatal: normal inspection, no pedal edema Neurologic/Psych: alert, oriented x 3 Social History Drug Use: none Marital Status: single, Housing Status: lives with family Occupation: retired Laboratory Results Past 24 Hours 01/12/17 06:06 Red Blood Count 3.14, Mean Corpuscular Volume 95.9, Mean Corpuscular Hemoglobin 32.5, Mean Corpuscular Hemoglobin Concent 33.9, Mean Platelet Volume 9.4, Neutrophils (%) (Auto) 90.6, Lymphocytes (%) (Auto) 6.7, Monocytes (%) (Auto) 2.5, Eosinophils (%) (Auto) 0.0, Basophils (%) (Auto) 0.0, Neutrophils # (Auto) 7.97, Lymphocytes # (Auto) 0.59, Monocytes # (Auto) 0.22, Eosinophils # (Auto) 0.00, Basophils # (Auto) 0.00 01/12/17 06:06 Test 01/12/17 06:06 White Blood Count 8.80 K/uL (4.8-10.8) Red Blood Count 3.14 M/uL (4.2-5.4) Hemoglobin 10.2 g/dL (12.0-16.0) Hematocrit 30.1 % (37-47) Mean Corpuscular Volume 95.9 fL (80-100) Mean Corpuscular Hemoglobin 32.5 pg (25-34) Mean Corpuscular Hemoglobin Concent 33.9 g/dl (32-36) Platelet Count 163 K/uL (130-400) Mean Platelet Volume 9.4 fL (7.4-10.4) Neutrophils (%) (Auto) 90.6 % Lymphocytes (%) (Auto) 6.7 % Monocytes (%) (Auto) 2.5 % Eosinophils (%) (Auto) 0.0 % Basophils (%) (Auto) 0.0 % Neutrophils # (Auto) 7.97 K/uL (1.4-6.5) Lymphocytes # (Auto) 0.59 K/uL (1.2-3.4) Monocytes # (Auto) 0.22 K/uL (0.11-0.59) Eosinophils # (Auto) 0.00 K/uL (0-0.5) Basophils # (Auto) 0.00 K/uL (0-0.2) RDW Standard Deviation 47.6 fL (36.4-46.3) RDW Coefficient of Variation 13.6 % (11.5-14.5) Immature Granulocyte % (Auto) 0.2 % Immature Granulocyte # (Auto) 0.02 K/uL (0.00-0.02) Anion Gap 11.0 mmol/L (3-11) Est Creatinine Clear Calc Drug Dose 7.0 ml/min Estimated GFR () 8.5 Estimated GFR (Non- 7.3 BUN/Creatinine Ratio 11.4 (10-20) Lactic Acid Level 1.0 mmol/L (0.4-2.0) Calcium Level 8.9 mg/dl (8.5-10.1) Phosphorus Level 3.7 mg/dl (2.5-4.9) Magnesium Level 2.2 mg/dl (1.8-2.4) Total Bilirubin 0.4 mg/dl (0.2-1) Aspartate Amino Transf (AST/SGOT) 22 U/L (15-37) Alanine Aminotransferase (ALT/SGPT) 17 U/L (12-78) Alkaline Phosphatase 89 U/L (45-117) Total Protein 7.0 gm/dl (6.4-8.2) Albumin 3.0 gm/dl (3.4-5.0) Globulin 4.0 gm/dl (2.5-4.0) Albumin/Globulin Ratio 0.8 (0.9-2) Allergies Coded Allergies: Clindamycin (Verified Allergy, Intermediate, NAUSEA, itching, 03/06/16) Cephalexin (Verified Allergy, Unknown, pruritis per PCP note , 03/06/16) Penicillins (Verified Allergy, Unknown, HIVES, 03/06/16) Ciprofloxacin (Verified Adverse Reaction, Unknown, NAUSEA, 03/06/16) Codeine (Verified Adverse Reaction, Unknown, NAUSEA, 03/06/16) Impression (1) End-stage renal disease on hemodialysis (2) Anemia (3) Hypertension (4) Gout, arthritis (5) Wrist swelling Elsie is an 89-year-old female with end-stage renal disease on hemodialysis. Recommendations Patient tolerated HD today without complications. She will follow up for outpatient HD tomorrow at [facility]. No additional changes at this time. She completed treatment below previous EDW.
[2017-01-14] MEDS ORDERED: FENTANYL PATCH REMOVE & WASTE SCH (08:59)
[2017-01-14] MEDS ORDERED: FENTANYL 75 MCG/HR TDSY TD SCH (09:00)
== END 2017-01-12 15:26 | disposition home or self-care (01) | DRG 553 ==
LOC: EDBD 08:19 → C.EDA 08:20 → C.2E 12:09 → ENRESERV 12:17 → CANRESERV 12:17 → ENRESERV 12:23
PROVIDERS: ADMIT Internal Medicine; ATTEND Internal Medicine
DX: M10.9 Gout, unspecified (principal); N18.6 End stage renal disease; I13.2 Hypertensive heart and chronic kidney disease with heart failure and with stage 5 chronic kidney disease, or end stage renal disease; D63.8 Anemia in other chronic diseases classified elsewhere; I50.9 Heart failure, unspecified; Z99.2 Dependence on renal dialysis; Z87.891 Personal history of nicotine dependence; Z79.82 Long term (current) use of aspirin; Z85.3 Personal history of malignant neoplasm of breast; Z79.890 Hormone replacement therapy; Z79.891 Long term (current) use of opiate analgesic; Z79.899 Other long term (current) drug therapy